=== PATIENT | female | born 1985 | race Caucasian/White ===

== ENCOUNTER → 2017-04-11 | Outpatient (REF) | payer OTHER ==
[2017-04-11 18:37] LABS: COMPLEMENT C3 102 MG/DL (90-180)
[2017-04-11 20:20] LABS: TOTAL PROTEIN,RANDOM URINE 127.6 MG/DL (0.0-12.0)
[2017-04-11 20:20] LABS: CREATININE,RANDOM URINE 56.4 MG/DL
[2017-04-13 10:16] LABS: ANTI DOUBLE STRAND-DNA AB <1 IU/mL (0-9); ANTINUCLEAR ANTIBODIES DIRECT Negative (Negative)
== END ==
LOC: M LAB REF 17:06
DX: N05.9 Unspecified nephritic syndrome with unspecified morphologic changes (principal)
CPT/HCPCS: 86160

== ENCOUNTER → 2017-10-08 | Outpatient (REF) | payer OTHER ==
[2017-10-08 19:31] LABS: TOTAL PROTEIN,RANDOM URINE 82.7 MG/DL (0.0-12.0)
== END ==
LOC: M LAB REF 18:06
DX: R80.8 Other proteinuria (principal); N08 Glomerular disorders in diseases classified elsewhere
CPT/HCPCS: 84156

== ENCOUNTER → 2018-04-11 | Outpatient (REF) | payer OTHER ==
[2018-04-11 14:17] LABS: CREATININE 24 HOUR, URINE 1146.8 MG/24HR (600-1800); CREATININE, URINE 40.1 MG/DL; TOTAL PROTEIN 24 HOUR URINE 932.3 MG/24HR (50-150); URINE TOTAL PROTEIN 32.6 MG/DL (0-12)
== END ==
LOC: M LAB REF 12:59
PROVIDERS: ATTEND Internal Medicine Nephrology
DX: R80.8 Other proteinuria (principal); N18.2 Chronic kidney disease, stage 2 (mild)

== ENCOUNTER → 2022-05-17 | Outpatient (REF) | payer OTHER ==
[2022-05-18 18:46] LABS: TOTAL PROTEIN,RANDOM URINE 108.2 MG/DL (0.0-14.0)
[2022-05-18 18:51] LABS: CREATININE,RANDOM URINE 49.3 MG/DL
== END ==
LOC: M LAB REF 16:58
PROVIDERS: ATTEND Nurse Practitioner Family
DX: R80.8 Other proteinuria (principal)

== ENCOUNTER → 2022-11-15 | Outpatient (REF) | payer OTHER ==
[2022-11-15 18:09] LABS: TOTAL PROTEIN,RANDOM URINE 24.6 MG/DL (0.0-14.0)
[2022-11-15 18:14] LABS: CREATININE,RANDOM URINE 18.3 MG/DL
== END ==
LOC: M LAB REF 17:08
PROVIDERS: ATTEND Nurse Practitioner Family
DX: R80.8 Other proteinuria (principal)

== ENCOUNTER → 2024-01-10 | Outpatient (REF) | payer OTHER ==
[2024-01-11 18:51] LABS: CREATININE,RANDOM URINE 74.4 MG/DL
[2024-01-11 18:52] LABS: TOTAL PROTEIN,RANDOM URINE 145.7 MG/DL (0.0-14.0)
== END ==
LOC: M LAB REF 16:58
PROVIDERS: ATTEND Nurse Practitioner Family
DX: R80.8 Other proteinuria (principal); N08 Glomerular disorders in diseases classified elsewhere

== ENCOUNTER → 2024-07-31 | Outpatient (REF) | payer OTHER ==
[2024-07-31 18:18] LABS: TOTAL PROTEIN,RANDOM URINE 50.9 MG/DL (0.0-14.0)
[2024-07-31 18:23] LABS: CREATININE,RANDOM URINE 23.6 MG/DL
== END ==
LOC: M LAB REF 16:51
PROVIDERS: ATTEND Nurse Practitioner Family
DX: R80.8 Other proteinuria (principal)

== ENCOUNTER → 2025-03-13 | Outpatient (REF) | payer OTHER ==
[2025-03-13 18:39] LABS: TOTAL PROTEIN,RANDOM URINE 75.1 MG/DL (0.0-14.0)
== END ==
LOC: M LAB REF 16:58
PROVIDERS: ATTEND Nurse Practitioner Family
DX: R80.8 Other proteinuria (principal); N08 Glomerular disorders in diseases classified elsewhere